=== PATIENT | male | born 1975 | race Caucasian/White ===

== ENCOUNTER 2021-10-02 14:30 | Emergency (ER) | payer BC, OTHER ==
[2021-10-02] MEDS ORDERED: Ondansetron 4 MG/2 ML SDV IVPUSH ONE (15:38)
[2021-10-02] MEDS ORDERED: Sodium Chloride 0.9% 10 ML Syringe FLUSH PRN (15:38)
[2021-10-02] MEDS ORDERED: Sodium Chloride 0.9% 1,000 ML IV SCH (15:45)
[2021-10-02 16:35] LABS: CORONAVIRUS COVID-19 NAA POSITIVE (NEGATIVE)
--- NOTE | 2021-10-02 16:38 | CR ---
Chest: Portable view of the chest was obtained. Comparison: No prior chest imaging is available. Diffuse increased lung markings are seen on both sides of the chest. No focal consolidation of alveolar densities are seen. Heart size and mediastinum are normal. Bony structures show nothing acute. Impression: 1. Diffuse increased lung markings raising the possibility of mild bronchitis. Please correlate with the patient's symptoms. If patient has no correlating symptoms findings may also represent chronic change. 2. No other acute abnormality is seen. Diagnostic code #3
[2021-10-02] MEDS ORDERED: methylPREDNISolone Sodium Succinate 125 MG/2 ML SDV IVPUSH PRN (17:02)
[2021-10-02] MEDS ORDERED: EPINEPHrine 1 MG/ML SDV IM PRN (17:02)
[2021-10-02] MEDS ORDERED: diphenhydrAMINE 50 MG/ML SDV IVPUSH PRN (17:02)
[2021-10-02] MEDS ORDERED: Famotidine 20 MG/2 ML SDV IVPUSH PRN (17:02)
--- NOTE | 2021-10-02 17:09 | EDM.PDOC ---
ED HPI GENERAL MEDICAL PROBLEM - General Chief Complaint: Respiratory Problem Stated Complaint: FEVER 4 DAYS\DIZZY Time Seen by Provider: 10/02/21 15:24 Source of Information: Reports: Patient History Limitations: Reports: No Limitations - History of Present Illness INITIAL COMMENTS - FREE TEXT/NARRATIVE: The patient presents with a cough, fever, chills and nausea. The patient says this started about 4 days ago. He has been coughing and short of breath. He has nausea but no vomiting. He had some diarrhea. He has no chest pain or abdominal pain. He has no problems with his lungs such as asthma or COPD. He does not smoke. He has no history of hypertension or coronary artery disease. He did not get vaccinated. He also has a headache. Onset: Gradual Duration: Day(s): (4) Severity: Moderate Improves with: Reports: None Worsens with: Reports: None Associated Symptoms: Reports: Cough, Fever/Chills, Headaches Treatments MEDICAL ASSISTANT DERMATOLOGY: Reports: Other (see below) Other Treatments MEDICAL ASSISTANT DERMATOLOGY: nyquil and severe cold/fever medicatioin Headache Pain Score (Numeric/FACES): 7 Generalized Pain Score (Numeric/FACES): 4 - Related Data Allergies Allergy/AdvReac Type Severity Reaction Status Date / Time meperidine HCl [From Demerol] Allergy Severe Agitation Verified 10/02/21 15:31 Home Meds: Home Meds Hydrocodone/Acetaminophen [Lavallette 10-325 Tablet] 1 each PO Q4H #20 tablet 03/25/16 [Rx] Ondansetron [Zofran ODT] 8 mg SL Q8H PRN #12 tab.dis 03/25/16 [Rx] Tamsulosin HCl [Flomax] 0.4 mg PO DAILY #10 cap.er.24h 03/25/16 [Rx] Albuterol [Proventil HFA] 2 puff INH Q4H PRN #1 inhaler 10/02/21 [Rx] Codeine/Promethazine [Phenergan with Codeine] 5 - 10 ml PO Q6HR PRN #300 ml 10/02/21 [Rx] Past Medical History - Past Health History Medical/Surgical History: Denies Medical/Surgical History Respiratory History: Reports: Other (See Below) Other Respiratory History: night terrors Gastrointestinal History: Reports: Chronic Diarrhea Genitourinary History: Reports: Renal Calculus Musculoskeletal History: Reports: Back Pain, Chronic Psychiatric History: Reports: Anxiety, Depression, Panic Attack, Other (See Below) Other Psychiatric History: night terrors - Infectious Disease History Infectious Disease History: Reports: None - Past Surgical History Other Musculoskeletal Surgeries/Procedures:: 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 Denies: Abdominal Pain, Vomiting : Reports: No Symptoms Musculoskeletal: Reports: No Symptoms Skin: Reports: No Symptoms Neurological: Reports: No Symptoms ED EXAM, GENERAL - Physical Exam Exam: See Below Exam Limited By: No Limitations General Appearance: Alert, No Apparent Distress Ears: Normal External Exam Nose: Normal Inspection Head: Atraumatic, Normocephalic Respiratory/Chest: No Respiratory Distress, Lungs Clear, Normal Breath Sounds Cardiovascular: Regular Rate, Rhythm, No Edema, No Murmur GI/Abdominal: Soft, Non-Tender, No Organomegaly Back Exam: Normal Inspection Extremities: Normal Inspection Course - Vital Signs Last Recorded V/S: Last Vital Signs Temp 100.3 F 10/02/21 15:28 Pulse 109 H 10/02/21 15:28 Resp 30 H 10/02/21 15:28 BP 119/81 10/02/21 15:28 Pulse Ox 93 L 10/02/21 15:28 - Orders/Labs/Meds Orders: Active Orders 24 hr Category Date Time Status Cardiac Monitoring [RC] . DIRECTED Care 10/02/21 15:38 Active Peripheral IV Care [RC] . DIRECTED Care 10/02/21 15:38 Active Vital Signs [RC] Q15M Care 10/02/21 17:02 Active Acetaminophen [TylenoL] Med 10/02/21 18:29 Once 975 mg PO NOW ONE EPINEPHrine [Adrenalin] Med 10/02/21 17:02 Active 0.3 mg IM ASDIRECTED PRN Famotidine [Pepcid] Med 10/02/21 17:02 Active 20 mg IVPUSH ASDIRECTED PRN Sodium Chloride 0.9% [Normal Saline] 1,000 ml Med 10/02/21 15:45 Active IV .BOLUS Sodium Chloride 0.9% [Saline Flush] Med 10/02/21 15:38 Active 10 ml FLUSH ASDIRECTED PRN Sodium Chloride 0.9% [Saline Flush] Med 10/02/21 17:15 Active 30 ml FLUSH ASDIRECTED diphenhydrAMINE [Benadryl] Med 10/02/21 17:02 Active 50 mg IVPUSH ASDIRECTED PRN methylPREDNISolone Sod Succ [Solu-MEDROL] Med 10/02/21 17:02 Active 125 mg IVPUSH ASDIRECTED PRN ED Antiemetic Medication Reflex [OM.PC] Stat Oth 10/02/21 15:38 Ordered Peripheral IV Insertion Adult [OM.PC] Stat Oth 10/02/21 15:38 Ordered Medication Orders Diphenhydramine HCl (Diphenhydramine 50 Mg/Ml Sdv) 50 mg IVPUSH ASDIRECTED PRN PRN Reason: hypersensitivity reaction Epinephrine HCl (Epinephrine 1 Mg/Ml Sdv) 0.3 mg IM ASDIRECTED PRN PRN Reason: hypersensitivity reaction Famotidine (Famotidine 20 Mg/2 Ml Sdv) 20 mg IVPUSH ASDIRECTED PRN PRN Reason: hypersensitivity reaction Sodium Chloride (Normal Saline) 1,000 mls @ 1,000 mls/hr IV .BOLUS NAYAN Last Admin: 10/02/21 16:35 Dose: 1,000 mls/hr Documented by: RAVEN Methylprednisolone Sodium Succinate (Methylprednisolone Sodium Succinate 125 Mg/2 Ml Sdv) 125 mg IVPUSH ASDIRECTED PRN PRN Reason: hypersensitivity reaction Sodium Chloride (Sodium Chloride 0.9% 10 Ml Syringe) 10 ml FLUSH ASDIRECTED PRN PRN Reason: Keep Vein Open Last Admin: 10/02/21 16:35 Dose: 10 ml Documented by: RAVEN Sodium Chloride (Sodium Chloride 0.9% 10 Ml Syringe) 30 ml FLUSH ASDIRECTED NAYAN Labs: Laboratory Tests 10/02/21 10/02/21 10/02/21 Range/Units 15:39 16:15 16:15 WBC 4.49 (4.23-9.07) K/mm3 RBC 5.47 (4.63-6.08) M/mm3 Hgb 16.4 (13.7-17.5) gm/dl Hct 47.1 (40.1-51.0) % MCV 86.1 (79.0-92.2) fl MCH 30.0 (25.7-32.2) pg MCHC 34.8 (32.2-35.5) g/dl RDW Std Deviation 44.3 H (35.1-43.9) fL Plt Count 158 L (163-337) K/mm3 MPV 11.8 (9.4-12.3) fl Neut % (Auto) 77.7 H (34.0-67.9) % Lymph % (Auto) 14.7 L (21.8-53.1) % [place] % (Auto) 7.6 (5.3-12.2) % Eos % (Auto) 0 L (0.8-7.0) Baso % (Auto) 0.0 L (0.1-1.2) % Neut # (Auto) 3.49 (1.78-5.38) K/mm3 Lymph # (Auto) 0.66 L (1.32-3.57) K/mm3 [place] # (Auto) 0.34 (0.30-0.82) K/mm3 Eos # (Auto) 0.00 L (0.04-0.54) K/mm3 Baso # (Auto) 0.00 L (0.01-0.08) K/mm3 Sodium 132 L D (136-145) mEq/L Potassium 4.2 (3.5-5.1) mEq/L Chloride 99 (98-107) mEq/L Carbon Dioxide 24 (21-32) mEq/L Anion Gap 13.2 (5-15) BUN 19 H (7-18) mg/dL Creatinine 1.3 (0.7-1.3) mg/dL Est Cr Clr Drug Dosing 79.59 mL/min Estimated GFR (MDRD) 60 (>60) mL/min BUN/Creatinine Ratio 14.6 (14-18) Glucose 140 H (70-99) mg/dL Lactic Acid (0.4-2.0) mmol/L Calcium 8.1 L (8.5-10.1) mg/dL Total Bilirubin 0.8 (0.2-1.0) mg/dL AST 42 H (15-37) U/L ALT 50 (16-63) U/L Alkaline Phosphatase 54 (46-116) U/L C-Reactive Protein 2.6 H* (<1.0) mg/dL Total Protein 7.5 (6.4-8.2) g/dl Albumin 3.7 (3.4-5.0) g/dl Globulin 3.8 gm/dL Albumin/Globulin Ratio 1.0 (1-2) Influenza Type A RNA Negative (NEGATIVE) Influenza Type B RNA Negative (NEGATIVE) SARS-CoV-2 RNA (REHAN) Positive H (NEGATIVE) 10/02/21 Range/Units 16:15 WBC (4.23-9.07) K/mm3 RBC (4.63-6.08) M/mm3 Hgb (13.7-17.5) gm/dl Hct (40.1-51.0) % MCV (79.0-92.2) fl MCH (25.7-32.2) pg MCHC (32.2-35.5) g/dl RDW Std Deviation (35.1-43.9) fL Plt Count (163-337) K/mm3 MPV (9.4-12.3) fl Neut % (Auto) (34.0-67.9) % Lymph % (Auto) (21.8-53.1) % [place] % (Auto) (5.3-12.2) % Eos % (Auto) (0.8-7.0) Baso % (Auto) (0.1-1.2) % Neut # (Auto) (1.78-5.38) K/mm3 Lymph # (Auto) (1.32-3.57) K/mm3 [place] # (Auto) (0.30-0.82) K/mm3 Eos # (Auto) (0.04-0.54) K/mm3 Baso # (Auto) (0.01-0.08) K/mm3 Sodium (136-145) mEq/L Potassium (3.5-5.1) mEq/L Chloride (98-107) mEq/L Carbon Dioxide (21-32) mEq/L Anion Gap (5-15) BUN (7-18) mg/dL Creatinine (0.7-1.3) mg/dL Est Cr Clr Drug Dosing mL/min Estimated GFR (MDRD) (>60) mL/min BUN/Creatinine Ratio (14-18) Glucose (70-99) mg/dL Lactic Acid 0.8 (0.4-2.0) mmol/L Calcium (8.5-10.1) mg/dL Total Bilirubin (0.2-1.0) mg/dL AST (15-37) U/L ALT (16-63) U/L Alkaline Phosphatase (46-116) U/L C-Reactive Protein (<1.0) mg/dL Total Protein (6.4-8.2) g/dl Albumin (3.4-5.0) g/dl Globulin gm/dL Albumin/Globulin Ratio (1-2) Influenza Type A RNA (NEGATIVE) Influenza Type B RNA (NEGATIVE) SARS-CoV-2 RNA (REHAN) (NEGATIVE) Meds: Medications Generic Name Dose Route Start Last Admin Trade Name Freq PRN Reason Stop Dose Admin Diphenhydramine HCl 50 mg 10/02/21 17:02 Diphenhydramine 50 Mg/Ml Sdv IVPUSH ASDIRECTED PRN hypersensitivity reaction Epinephrine HCl 0.3 mg 10/02/21 17:02 Epinephrine 1 Mg/Ml Sdv IM ASDIRECTED PRN hypersensitivity reaction Famotidine 20 mg 10/02/21 17:02 Famotidine 20 Mg/2 Ml Sdv IVPUSH ASDIRECTED PRN hypersensitivity reaction Sodium Chloride 1,000 mls @ 1,000 mls/hr 10/02/21 15:45 10/02/21 16:35 Normal Saline IV 1,000 mls/hr .BOLUS NAYAN Administration Methylprednisolone Sodium Succinate 125 mg 10/02/21 17:02 Methylprednisolone Sodium Succinate 125 Mg/2 Ml Sdv IVPUSH ASDIRECTED PRN hypersensitivity reaction Sodium Chloride 10 ml 10/02/21 15:38 10/02/21 16:35 Sodium Chloride 0.9% 10 Ml Syringe FLUSH 10 ml ASDIRECTED PRN Administration Keep Vein Open Sodium Chloride 30 ml 10/02/21 17:15 Sodium Chloride 0.9% 10 Ml Syringe FLUSH ASDIRECTED NAYAN Discontinued Medications Generic Name Dose Route Start Last Admin Trade Name Freq PRN Reason Stop Dose Admin CASIRIVIMAB/IMDEVIMAB 10 ml/ 110 mls @ 220 mls/hr 10/02/21 17:02 10/02/21 17:34 Sodium Chloride IV 10/02/21 17:31 220 mls/hr ONETIME ONE Administration Ondansetron HCl 4 mg 10/02/21 15:38 10/02/21 16:35 Ondansetron 4 Mg/2 Ml Sdv IVPUSH 10/02/21 15:39 4 mg ONETIME ONE Administration - Re-Assessments/Exams Free Text/Narrative Re-Assessment/Exam: 10/02/21 17:11 I ordered an IV NS 1L bolus, zofran 4mg IV, labs, CXR and COVID 19. His CBC looks good. His Na is low at 132. His glucose is elevated at 140. His lactic acid is normal. His AST is elevated at 42. His CRP is elevated at 2.6. He is COVID positive. His CXR shows a bronchitis. spoke with the patient to provide information about REGEN-COV treatment. I offered them the Patient and Caregiver EUA REGEN-COV Fact Sheet to read and review. I stated the drug has been approved by an emergency use authorization (EUA} process and has not fully been FDA reviewed or approved. The patient meets the EUA requirements. I discussed there are other potential treatment options that are currently not FDA approved to treat COVID 19. Offered opportunity to ask questions and all questions were answered. The patient voiced understanding and agreed to proceed with treatment. 10/02/21 18:29 The patient feels like he is having a temp again. I checked it and it was 100.5. I ordered some tylenol. I will get him an inhaler and some phenergan with codeine for the cough. Departure - Departure Time of Disposition: 18:30 Disposition: Home, Self-Care 01 Condition: Good Clinical Impression: COVID-19, Viral bronchitis - Discharge Information *PRESCRIPTION DRUG MONITORING PROGRAM REVIEWED*: Not Applicable *COPY OF PRESCRIPTION DRUG MONITORING REPORT IN PATIENT DIMA: Not Applicable Prescriptions: Codeine/Promethazine [Phenergan with Codeine] 5 - 10 ml PO Q6HR PRN #300 ml PRN Reason: Cough Albuterol [Proventil HFA] 2 puff INH Q4H PRN #1 inhaler PRN Reason: Shortness Of Breath Referrals: PCP,None [Primary Care Provider] - Juan David Olmedo MD [Physician] - 1 Week Forms: ED Department Discharge Additional Instructions: Drink plenty of fluids. Take the phenergan with codeine as needed for the cough. Use the inhaler 2 puffs every 6 hours as needed for shortness of breath. Try to lay on your stomach as much as you can. That will help oxygenate more of your lungs. Sepsis Event Note (ED) - Focused Exam Vital Signs: Vital Signs Temp Pulse Resp BP Pulse Ox 10/02/21 15:28 100.3 F 109 H 30 H 119/81 93 L - My Orders Last 24 Hours: My Active Orders 10/02/21 15:38 Cardiac Monitoring [RC] . DIRECTED Peripheral IV Care [RC] . DIRECTED Sodium Chloride 0.9% [Saline Flush] 10 ml FLUSH ASDIRECTED PRN ED Antiemetic Medication Reflex [OM.PC] Stat Peripheral IV Insertion Adult [OM.PC] Stat 10/02/21 15:45 Sodium Chloride 0.9% [Normal Saline] 1,000 ml IV .BOLUS 10/02/21 17:02 Vital Signs [RC] Q15M EPINEPHrine [Adrenalin] 0.3 mg IM ASDIRECTED PRN Famotidine [Pepcid] 20 mg IVPUSH ASDIRECTED PRN diphenhydrAMINE [Benadryl] 50 mg IVPUSH ASDIRECTED PRN methylPREDNISolone Sod Succ [Solu-MEDROL] 125 mg IVPUSH ASDIRECTED PRN 10/02/21 17:15 Sodium Chloride 0.9% [Saline Flush] 30 ml FLUSH ASDIRECTED 10/02/21 18:29 Acetaminophen [TylenoL] 975 mg PO NOW ONE - Assessment/Plan Last 24 Hours: My Active Orders 10/02/21 15:38 Cardiac Monitoring [RC] . DIRECTED Peripheral IV Care [RC] . DIRECTED Sodium Chloride 0.9% [Saline Flush] 10 ml FLUSH ASDIRECTED PRN ED Antiemetic Medication Reflex [OM.PC] Stat Peripheral IV Insertion Adult [OM.PC] Stat 10/02/21 15:45 Sodium Chloride 0.9% [Normal Saline] 1,000 ml IV .BOLUS 10/02/21 17:02 Vital Signs [RC] Q15M EPINEPHrine [Adrenalin] 0.3 mg IM ASDIRECTED PRN Famotidine [Pepcid] 20 mg IVPUSH ASDIRECTED PRN diphenhydrAMINE [Benadryl] 50 mg IVPUSH ASDIRECTED PRN methylPREDNISolone Sod Succ [Solu-MEDROL] 125 mg IVPUSH ASDIRECTED PRN 10/02/21 17:15 Sodium Chloride 0.9% [Saline Flush] 30 ml FLUSH ASDIRECTED 10/02/21 18:29 Acetaminophen [TylenoL] 975 mg PO NOW ONE
[2021-10-02] MEDS ORDERED: Sodium Chloride 0.9% 10 ML Syringe FLUSH SCH (17:15)
[2021-10-02] MEDS ORDERED: Acetaminophen 325 MG Tab PO ONE (18:29)
[2021-10-02 19:22] VITALS: BP 133/86; PULSE 106
== END 2021-10-02 19:05 | disposition home or self-care (01) ==
LOC: JD.ED 14:30
DX: U07.1 COVID-19 (principal); J20.8 Acute bronchitis due to other specified organisms; Z88.5 Allergy status to narcotic agent
CPT/HCPCS: 0240U; 36415; 71045; 80053; 83605; 85025; 86140; 96374; 99284; A9270; J2405; J7030; M0243; Q0243

== ENCOUNTER 2025-06-10 14:49 | Emergency (ER) | payer BC ==
[2025-06-10 15:17] LABS: BASOPHILS ABSOLUTE AUTO 0.0 K/mm3 (0.0-0.2); BASOPHILS PERCENT AUTO 0.4 % (0.0-1.0); EOSINOPHILS ABSOLUTE AUTO 0.3 K/mm3 (0.0-0.4); EOSINOPHILS PERCENT AUTO 3.1 % (0.0-6.0); IMMATURE GRAN ABSOLUTE AUTO 0.02 K/mm3 (0.00-0.05); IMMATURE GRAN PERCENT AUTO 0.2 % (0.0-0.4); LYMPHOCYTES ABSOLUTE AUTO 1.3 K/mm3 (1.0-4.8); LYMPHOCYTES PERCENT AUTO 15.0 % (24.0-44.0); MEAN PLATELET VOLUME 10.3 fl (9.4-12.4); MONOCYTES ABSOLUTE AUTO 0.5 K/mm3 (0.0-0.8); MONOCYTES PERCENT AUTO 6.1 % (0.0-8.0); NEUTROPHILS ABSOLUTE AUTO 6.4 K/mm3 (1.8-7.7); NEUTROPHILS PERCENT AUTO 75.2 % (41.0-71.0); NRBC ABSOLUTE 0.00 (0.00-0.02); NRBC PERCENT 0.0 % (0.0-0.2); PLATELET COUNT,PLT 226 K/mm3 (150-400); RED BLOOD CELL COUNT 5.08 M/mm3 (4.52-5.90); WHITE BLOOD CELL COUNT,WBC 8.49 K/mm3 (3.9-11.3)
[2025-06-10 15:51] LABS: A/G RATIO 1.1 (1-2); ALANINE AMINOTRANSFERASE,ALT 32 U/L (16-63); ASPARTATE AMNIOTRANSFERASE,AST 22 U/L (15-37); BILIRUBIN TOTAL 0.5 mg/dL (0.2-1.0); BLOOD UREA NITROGEN,BUN 16 mg/dL (7-18); CARBON DIOXIDE,CO2 26 mEq/L (21-32); CHLORIDE,CL 106 mEq/L (98-107); CREATININE 1.1 mg/dL (0.7-1.3); EST CRCL DRUG DOSING (CG) 87.47 mL/min; ESTIMATED GFR 83 mL/min (>60); GLUCOSE RANDOM 146 mg/dL (70-99); POTASSIUM,K 3.7 mEq/L (3.5-5.1); PROTEIN TOTAL,TP 6.8 g/dl (6.4-8.2); SODIUM,NA 141 mEq/L (136-145)
[2025-06-10 15:58] LABS: TROPONIN I HIGH SENSITIVITY < 4 pg/mL (<=76)
[2025-06-10] MEDS: Sodium Chloride 0.9% 10 ML Syringe FLUSH PRN (17:00)
[2025-06-10] MEDS: Iopamidol 755 Mg/ML 100 ML Bottle IVPUSH ONE (17:00)
[2025-06-10 18:28] VITALS: BP 111/82; PULSE 91
== END 2025-06-10 18:17 | disposition home or self-care (01) ==
LOC: JD.ED 14:49
DX: R07.89 Other chest pain (principal); Z88.8 Allergy status to other drugs, medicaments and biological substances; Z79.899 Other long term (current) drug therapy
CPT/HCPCS: 36415; 71046; 71275; 80053; 84484; 85025; 85379; 93005; 99285; Q9967; 93010; 99283